=== PATIENT | female | born 1955 | race Hispanic/Latino ===

== ENCOUNTER 2022-03-19 22:56 | Inpatient (IN) | payer MEDICARE ==
[2022-03-19 23:40] LABS: Hemoglobin 10.7 g/dL (12.0-16.0); Mean Corpuscular HGB CONC 33.4 g/dL (32.0-36.0); Mean Corpuscular Hemoglobin 32.3 pg (27.0-31.0); Mean Corpuscular Volume 96.5 fL (78.0-98.0); RBC Distribution Width 15.9 % (11.5-14.5); Red Blood Cell (RBC) Count 3.31 mill/uL (4.20-5.40); White Blood Cell (WBC) Count 3.7 thou/uL (4.8-10.8)
[2022-03-19 23:57] LABS: Acetaminophen Less than 10.0 mcg/mL (10.0-30.0); Alcohol 74 mg/dL (Less than 10); Salicylate Less than 8.0 mg/dL (15.0-30.0)
[2022-03-19 23:58] LABS: ALT (SGPT) 19 U/L (8-55); AST (SGOT) 37 U/L (5-34); Albumin 2.8 g/dL (3.4-4.8); Alkaline Phosphatase 109 U/L (40-110); Anion Gap 15 mmol/L (10-20); BUN (Urea Nitrogen) 5 mg/dL (9.8-20.1); Bilirubin, Total 1.4 mg/dL (0.2-1.2); Calc. Creatinine Clearance 0 mL/min (70-130); Calcium 7.9 mg/dL (7.8-10.44); Carbon Dioxide 20 mmol/L (23-31); Chloride 110 mmol/L (98-107); Estimated GFR 98; Globulin 3.4 g/dL (2.4-3.5); Glucose 77 mg/dL (80-115); Potassium 3.3 mmol/L (3.5-5.1); Protein, Total 6.2 g/dL (5.8-8.1); Sodium 142 mmol/L (136-145)
[2022-03-20 00:09] LABS: #Eosinphils 0.1 thou/uL (0.0-0.7); #Monocytes 0.3 thou/uL (0.11-0.59); #Neutrophils 2.3 thou/uL (1.40-6.50); %Basophils 0.8 % (0.0-1.0); %Lymphocytes 25.9 % (21.0-51.0); %Monocytes 9.1 % (0.0-10.0); %Neutrophils 61.3 % (42.0-75.0); Mean Platelet Volume 10.5 fL (7.4-10.4); Platelet Count 60 thou/uL (130-400); Platelet Morphology Comment Appears Decreased
[2022-03-20 00:41] LABS: Amphetamine Not Detected (NotDetected); Barbiturates Screen Not Detected (NotDetected); Benzodiazepine Screen Detected (NotDetected); Cocaine Metabolite Screen Not Detected (NotDetected); Methadone Not Detected (NotDetected); Methamphetamine Not Detected (NotDetected); Opiate Screen Not Detected (NotDetected); Oxycodone Screen Not Detected (NotDetected); Phencyclidine (PCP) Not Detected (NotDetected); THC/Cannabinoid Screen Not Detected (NotDetected); Tricyclic Screen Not Detected (NotDetected)
[2022-03-20 00:45] LABS: Bacteria/HPF 4+ HPF (None Seen); Bilirubin Negative (Negative); Blood, Urine Negative (Negative); Clarity Clear (Clear); Glucose, Urine (Dipstick) Normal (Negative); Ketone, Urine Negative (Negative); Leukocyte 500 Leu/uL (Negative); Nitrite Negative (Negative); Protein, Urine (Dipstick) Negative (Neg-Trace); RBC/HPF None Seen HPF (0-3); Specific Gravity, Urine 1.005 (1.002-1.036); Squamous Epithelial 0-3 HPF (0-3); Transitional Epithelial 0-3 HPF (None Seen); Urobilinogen Normal mg/dL (Less than 2); WBC/HPF 21-50 HPF (0-3); pH, Urine 5.5 (5.0-9.0)
[2022-03-20] MEDS ORDERED: cefTRIAXone\\ROCEPHIN 1 GM VIAL ONE ×2 (01:30→12:55)
[2022-03-20 03:15] LABS: Lactic Acid 2.3 mmol/L (0.5-2.2)
[2022-03-20 04:29] VITALS: BMI 29.8
[2022-03-20] MEDS ORDERED: Ondansetron PF 4 MG/2 ML Vial IVP PRN (05:21)
[2022-03-20] MEDS ORDERED: Lorazepam 1 MG TAB PO PRN (05:27)
[2022-03-20] MEDS ORDERED: Lorazepam 2 MG/ML VIAL IM PRN (05:27)
[2022-03-20] MEDS ORDERED: Potassium Chloride 20 MEQ TAB PO SCH (05:30)
[2022-03-20] MEDS ORDERED: Electrolyte Replacement Protocol 1 EACH FS PRN (05:30)
[2022-03-20] MEDS ORDERED: Magnesium Oxide 400 MG TAB PO SCH (05:30)
[2022-03-20] MEDS ORDERED: Dextrose 50% Abboject 50 ML SYRINGE SLOW IVP PRN (05:34)
[2022-03-20] MEDS ORDERED: Dextrose 5% in Water 1,000 ML IV PRN (05:34)
[2022-03-20 06:29] LABS: #Eosinphils 0.2 thou/uL (0.0-0.7); #Lymphocytes 0.9 thou/uL (1.20-3.40); #Monocytes 0.3 thou/uL (0.11-0.59); %Basophils 0.8 % (0.0-1.0); %Eosinophils 4.4 % (0.0-10.0); %Lymphocytes 26.2 % (21.0-51.0); %Neutrophils 58.6 % (42.0-75.0); Hemoglobin 11.6 g/dL (12.0-16.0); Mean Corpuscular HGB CONC 32.9 g/dL (32.0-36.0); Mean Corpuscular Hemoglobin 31.9 pg (27.0-31.0); Mean Platelet Volume 10.7 fL (7.4-10.4); Platelet Count 59 thou/uL (130-400); RBC Distribution Width 15.9 % (11.5-14.5); Red Blood Cell (RBC) Count 3.63 mill/uL (4.20-5.40); White Blood Cell (WBC) Count 3.4 thou/uL (4.8-10.8)
[2022-03-20 06:37] LABS: Anion Gap 11 mmol/L (10-20); BUN (Urea Nitrogen) 4 mg/dL (9.8-20.1); Calc. Creatinine Clearance 106 mL/min (70-130); Calcium 8.1 mg/dL (7.8-10.44); Carbon Dioxide 24 mmol/L (23-31); Chloride 109 mmol/L (98-107); Estimated GFR 98; Glucose 100 mg/dL (80-115); Magnesium 1.6 mg/dL (1.6-2.6); Potassium 3.2 mmol/L (3.5-5.1); Sodium 141 mmol/L (136-145)
[2022-03-20 07:20] LABS: SARS-CoV-2 NAA Rapid Test Not Detected (NotDetected)
[2022-03-20] MEDS ORDERED: Magnesium 2 GM/50 ML(in water) 2 GM in Premix Bag 1 BAG IVPB SCH (08:00)
[2022-03-20] MEDS ORDERED: Magnesium 2 GM/50 ML BAG (IN WATER) ONE (08:39)
[2022-03-20] MEDS ORDERED: Folic Acid 1 MG TAB ONE (08:39)
[2022-03-20] MEDS ORDERED: Potassium Chloride 20 MEQ TAB ONE (08:41)
[2022-03-20] MEDS ORDERED: ALPRAZolam 0.5 MG TAB PO PRN (08:49)
[2022-03-20] MEDS: Folic Acid 1 MG TAB PO SCH ×2 (08:54→09:59)
[2022-03-20] MEDS: Thiamine HCl 200 MG/2 ML VIAL SLOW IVP SCH (08:55)
[2022-03-20] MEDS ORDERED: Non-Formulary Item 1 EACH (Sertraline Hcl [Sertraline Hcl] 50 MG Tablet) PO SCH (09:00)
[2022-03-20] MEDS ORDERED: Non-Formulary Item 1 EACH (Buspirone Hcl [Buspirone Hcl] 15 MG Tablet) PO SCH (09:00)
[2022-03-20 09:30] LABS: Phosphorus 2.7 mg/dL (2.3-4.7)
[2022-03-20] MEDS: busPIRone HCl 5 MG TAB PO SCH ×2 (10:16→20:27)
[2022-03-20] MEDS: Multivit, Therapeutic 1 TAB PO SCH (11:46)
[2022-03-20] MEDS: Rifaximin 550 MG TAB PO SCH ×2 (11:48→20:26)
[2022-03-20] MEDS: Nadolol 40 MG TAB PO SCH (20:26)
[2022-03-21] MEDS: cefTRIAXone\\ROCEPHIN 1 GM in Sodium Chloride 0.9% 100 ML IVPB SCH (01:56)
[2022-03-21] MEDS: Thiamine HCl 200 MG/2 ML VIAL SLOW IVP SCH (04:37)
[2022-03-21 05:12] LABS: #Eosinphils 0.1 thou/uL (0.0-0.7); #Lymphocytes 0.8 thou/uL (1.20-3.40); #Monocytes 0.3 thou/uL (0.11-0.59); #Neutrophils 2.3 thou/uL (1.40-6.50); %Basophils 1.1 % (0.0-1.0); %Eosinophils 4.1 % (0.0-10.0); %Lymphocytes 22.4 % (21.0-51.0); %Monocytes 8.3 % (0.0-10.0); %Neutrophils 64.1 % (42.0-75.0); Anion Gap 10 mmol/L (10-20); BUN (Urea Nitrogen) 6 mg/dL (9.8-20.1); Calc. Creatinine Clearance 111 mL/min (70-130); Calcium 7.9 mg/dL (7.8-10.44); Carbon Dioxide 23 mmol/L (23-31); Chloride 109 mmol/L (98-107); Estimated GFR 99; Glucose 97 mg/dL (80-115); Magnesium 1.7 mg/dL (1.6-2.6); Mean Corpuscular HGB CONC 32.6 g/dL (32.0-36.0); Mean Corpuscular Hemoglobin 31.6 pg (27.0-31.0); Mean Corpuscular Volume 96.9 fL (78.0-98.0); Mean Platelet Volume 10.1 fL (7.4-10.4); Platelet Count 52 thou/uL (130-400); Potassium 3.4 mmol/L (3.5-5.1); RBC Distribution Width 15.8 % (11.5-14.5); Red Blood Cell (RBC) Count 3.49 mill/uL (4.20-5.40); Sodium 139 mmol/L (136-145); White Blood Cell (WBC) Count 3.5 thou/uL (4.8-10.8)
[2022-03-21] MEDS ORDERED: Lorazepam 1 MG TAB PO PRN (05:27)
[2022-03-21] MEDS ORDERED: Magnesium 2 GM/50 ML(in water) 2 GM in Premix Bag 1 BAG IVPB SCH (05:30)
[2022-03-21] MEDS ORDERED: Potassium Chloride 20 MEQ TAB PO SCH (08:00)
[2022-03-21] MEDS: Multivit, Therapeutic 1 TAB PO SCH (08:09)
[2022-03-21] MEDS: Rifaximin 550 MG TAB PO SCH ×2 (08:09→20:36)
[2022-03-21] MEDS: Folic Acid 1 MG TAB PO SCH ×2 (08:09)
[2022-03-21] MEDS: busPIRone HCl 5 MG TAB PO SCH ×2 (09:18→20:35)
[2022-03-21] MEDS: Acetaminophen 325 MG TAB PO PRN ×2 (11:41→20:43)
[2022-03-21] MEDS: Nadolol 40 MG TAB PO SCH (20:35)
[2022-03-21] MEDS: Gabapentin 300 MG CAP PO SCH (20:35)
[2022-03-22] MEDS: cefTRIAXone\\ROCEPHIN 1 GM in Sodium Chloride 0.9% 100 ML IVPB SCH (02:48)
[2022-03-22] MEDS ORDERED: Lorazepam 1 MG TAB PO PRN (05:27)
[2022-03-22] MEDS: Thiamine HCl 200 MG/2 ML VIAL SLOW IVP SCH (05:47)
[2022-03-22] MEDS: Folic Acid 1 MG TAB PO SCH ×2 (08:36)
[2022-03-22] MEDS: busPIRone HCl 5 MG TAB PO SCH ×2 (08:36→20:58)
[2022-03-22] MEDS: Gabapentin 300 MG CAP PO SCH ×3 (08:36→20:58)
[2022-03-22] MEDS: Multivit, Therapeutic 1 TAB PO SCH (08:37)
[2022-03-22] MEDS: Rifaximin 550 MG TAB PO SCH ×2 (08:37→20:54)
[2022-03-22] MEDS ORDERED: Ibuprofen 200 MG TAB PO SCH (12:45)
[2022-03-22] MEDS: Nadolol 40 MG TAB PO SCH (20:55)
[2022-03-23] MEDS: cefTRIAXone\\ROCEPHIN 1 GM in Sodium Chloride 0.9% 100 ML IVPB SCH (01:07)
[2022-03-23] MEDS ORDERED: Lorazepam 0.5 MG TAB PO PRN (05:27)
[2022-03-23] MEDS ORDERED: Thiamine 100 MG TAB PO SCH (06:00)
[2022-03-23] MEDS: Multivit, Therapeutic 1 TAB PO SCH (08:26)
[2022-03-23] MEDS: Gabapentin 300 MG CAP PO SCH ×3 (08:26→20:02)
[2022-03-23] MEDS: Rifaximin 550 MG TAB PO SCH ×2 (08:26→20:02)
[2022-03-23] MEDS: Folic Acid 1 MG TAB PO SCH (08:27)
[2022-03-23] MEDS: busPIRone HCl 5 MG TAB PO SCH ×2 (08:27→20:03)
[2022-03-23] MEDS: Thiamine 100 MG TAB PO SCH (10:37)
[2022-03-23] MEDS ORDERED: Acetaminophen 500 MG TAB PO PRN (10:45)
[2022-03-23] MEDS: Nadolol 40 MG TAB PO SCH (20:04)
[2022-03-23] MEDS ORDERED: ALPRAZolam 1 MG TAB PO SCH (21:45)
[2022-03-23] MEDS ORDERED: ALPRAZolam 1 MG TAB PO PRN (21:47)
[2022-03-23] MEDS ORDERED: ALPRAZolam 0.5 MG TAB PO SCH (22:00)
[2022-03-24] MEDS: busPIRone HCl 5 MG TAB PO SCH (09:49)
[2022-03-24] MEDS: Rifaximin 550 MG TAB PO SCH (09:49)
[2022-03-24] MEDS: Folic Acid 1 MG TAB PO SCH (09:51)
[2022-03-24] MEDS: Gabapentin 300 MG CAP PO SCH ×2 (09:51→14:59)
[2022-03-24] MEDS: Multivit, Therapeutic 1 TAB PO SCH (09:52)
[2022-03-24] MEDS: Thiamine 100 MG TAB PO SCH (09:52)
[2022-03-24 12:10] VITALS: TEMP 98.5
[2022-03-24 15:07] VITALS: BP 119/86
== END 2022-03-24 16:23 | disposition home health service (06) | DRG 125 ==
LOC: ERS 22:56 → ERHOLD 03-20 01:57 → NEURO 03-20 16:53 → OBSVTOIN 03-21 13:51
PROVIDERS: ADMIT Internal Medicine; ATTEND Internal Medicine
PROC: 4A00X4Z Measurement of Central Nervous Electrical Activity, External Approach (ICD-10-PCS; principal; 2022-03-22)
DX: R44.1 Visual hallucinations (principal); N39.0 Urinary tract infection, site not specified; D61.818 Other pancytopenia; T42.6X5A Adverse effect of other antiepileptic and sedative-hypnotic drugs, initial encounter; F10.129 Alcohol abuse with intoxication, unspecified; K74.60 Unspecified cirrhosis of liver; Z20.822 Contact with and (suspected) exposure to COVID-19; E11.9 Type 2 diabetes mellitus without complications; B18.2 Chronic viral hepatitis C; G43.909 Migraine, unspecified, not intractable, without status migrainosus; F31.9 Bipolar disorder, unspecified; E87.6 Hypokalemia; R29.6 Repeated falls; Y90.3 Blood alcohol level of 60-79 mg/100 ml; Z91.040 Latex allergy status; Z88.5 Allergy status to narcotic agent; Z79.899 Other long term (current) drug therapy
CPT/HCPCS: 36415; 36416; 51701; 70450; 71045; 80048; 80053; 80177; 80306; 80307; 81003; 81015; 82140; 83605; 83735; 84100; 84484; 85025; 87040; 87086; 93005; 95816; 95819; 95957; 96361; 96374; 96375; 96376; G0378; J0696; J3411; J3475; J3490; U0002

== ENCOUNTER 2022-08-31 08:01 | Outpatient (CLI) | payer MEDICARE | END 2022-08-31 08:02 | disposition home or self-care (01) | LOC: TBSIIMAG 08:01 | PROVIDERS: ATTEND Nurse Practitioner Family | DX: M47.26 Other spondylosis with radiculopathy, lumbar region (principal); M51.16 Intervertebral disc disorders with radiculopathy, lumbar region; M84.48XA Pathological fracture, other site, initial encounter for fracture; M43.16 Spondylolisthesis, lumbar region; M47.812 Spondylosis without myelopathy or radiculopathy, cervical region; M43.9 Deforming dorsopathy, unspecified; M48.061 Spinal stenosis, lumbar region without neurogenic claudication | CPT/HCPCS: 72040; 72100; 72148 ==

== ENCOUNTER 2022-10-15 09:47 | Outpatient (CLI) | payer MEDICARE | END 2022-10-15 09:48 | disposition home or self-care (01) | LOC: TBSIIMAG 09:47 | PROVIDERS: ATTEND Neurological Surgery | DX: M54.16 Radiculopathy, lumbar region (principal); M43.16 Spondylolisthesis, lumbar region; S32.031D Stable burst fracture of third lumbar vertebra, subsequent encounter for fracture with routine healing | CPT/HCPCS: 72100 ==

== ENCOUNTER 2022-11-02 09:03 | Outpatient (CLI) | payer MEDICARE | END 2022-11-02 09:04 | disposition home or self-care (01) | LOC: TBSIIMAG 09:03 | PROVIDERS: ATTEND Neurological Surgery | DX: M51.06 Intervertebral disc disorders with myelopathy, lumbar region (principal); S32.031A Stable burst fracture of third lumbar vertebra, initial encounter for closed fracture; M47.16 Other spondylosis with myelopathy, lumbar region; M47.12 Other spondylosis with myelopathy, cervical region | CPT/HCPCS: 72050; 72120; 72141 ==